=== PATIENT | male | born 1965 | race Caucasian/White ===

== ENCOUNTER 2021-06-26 16:27 | Emergency (ER) | payer BC ==
[2021-06-26 19:55] LABS: Bilirubin Negative (Negative); Blood, Urine Negative (Negative); Clarity Clear (Clear); Glucose, Urine (Dipstick) Normal (Negative); Ketone, Urine Negative (Negative); Leukocyte Negative Leu/uL (Negative); Nitrite Negative (Negative); Protein, Urine (Dipstick) Negative (Neg-Trace); Specific Gravity, Urine 1.007 (1.002-1.036); Urobilinogen Normal mg/dL (Less than 2)
== END 2021-06-26 21:06 | disposition home or self-care (01) ==
LOC: ERS 16:27
DX: R33.9 Retention of urine, unspecified (principal); F17.210 Nicotine dependence, cigarettes, uncomplicated
CPT/HCPCS: 81003; 99283

== ENCOUNTER 2021-10-16 13:37 | Emergency (ER) | payer OTHER, SELFPAY ==
[2021-10-16 14:36] LABS: #Basophils 0.1 thou/uL (0.0-0.2); #Eosinphils 0.2 thou/uL (0.0-0.7); #Lymphocytes 2.4 thou/uL (1.20-3.40); #Monocytes 0.7 thou/uL (0.11-0.59); #Neutrophils 4.1 thou/uL (1.40-6.50); %Basophils 0.9 % (0.0-1.0); %Eosinophils 2.9 % (0.0-10.0); %Lymphocytes 32.2 % (21.0-51.0); %Monocytes 9.2 % (0.0-10.0); %Neutrophils 54.8 % (42.0-75.0); Hemoglobin 11.6 g/dL (14.0-18.0); Mean Corpuscular HGB CONC 34.3 g/dL (32.0-36.0); Mean Corpuscular Volume 90.2 fL (78.0-98.0); Platelet Count 202 thou/uL (130-400); RBC Distribution Width 11.6 % (11.5-14.5); Red Blood Cell (RBC) Count 3.75 mill/uL (4.70-6.10); White Blood Cell (WBC) Count 7.5 thou/uL (4.8-10.8)
[2021-10-16 14:41] LABS: Mean Platelet Volume 8.9 fL (7.4-10.4)
[2021-10-16 15:00] LABS: ALT (SGPT) 11 U/L (8-55); AST (SGOT) 17 U/L (5-34); BUN (Urea Nitrogen) 10 mg/dL (8.4-25.7)
[2021-10-16 15:13] LABS: Albumin 4.2 g/dL (3.5-5.0); Alkaline Phosphatase 71 U/L (40-110); Anion Gap 13 mmol/L (10-20); Bilirubin, Total 0.2 mg/dL (0.2-1.2); Calc. Creatinine Clearance 0 mL/min (70-130); Calcium 9.5 mg/dL (7.8-10.44); Carbon Dioxide 25 mmol/L (22-29); Chloride 102 mmol/L (98-107); Globulin 2.7 g/dL (2.4-3.5); Glucose 135 mg/dL (70-105); Potassium 3.9 mmol/L (3.5-5.1); Protein, Total 6.9 g/dL (6.0-8.3); Sodium 136 mmol/L (136-145)
[2021-10-16 20:26] LABS: Bilirubin Negative (Negative); Blood, Urine Negative (Negative); Clarity Clear (Clear); Glucose, Urine (Dipstick) Normal (Negative); Ketone, Urine Negative (Negative); Leukocyte Negative Leu/uL (Negative); Nitrite Negative (Negative); Protein, Urine (Dipstick) Negative (Neg-Trace); Specific Gravity, Urine 1.006 (1.002-1.036); Urobilinogen Normal mg/dL (Less than 2); pH, Urine 6.5 (5.0-9.0)
== END 2021-10-16 21:32 | disposition home or self-care (01) ==
LOC: ERS 13:37
DX: R10.12 Left upper quadrant pain (principal); R10.11 Right upper quadrant pain; G89.29 Other chronic pain; F17.210 Nicotine dependence, cigarettes, uncomplicated
CPT/HCPCS: 36415; 74176; 80053; 81003; 83690; 85025

== ENCOUNTER 2021-10-24 16:13 | Outpatient (CLI) | payer OTHER ==
[2021-10-24 17:06] LABS: Bilirubin Neg (Negative); Blood, Urine Negative (Negative); Clarity Clear (Clear); Glucose, Urine (Dipstick) Normal (Negative); Ketone, Urine Negative (Negative); Leukocyte Negative (Negative); Nitrite Negative (Negative); Protein, Urine (Dipstick) Negative (Neg-Trace); Urobilinogen Normal mg/dL (Less than 2)
[2021-10-24 17:20] LABS: Specific Gravity, Urine 1.015 (1.002-1.036)
[2021-10-24 17:24] LABS: RBC/HPF None Seen HPF (0-3)
[2021-10-25 17:56] LABS: SARS-CoV-2 PCR by NAA Not Detected (NotDetected)
== END 2021-10-24 16:14 | disposition home or self-care (01) ==
LOC: LABBT 16:13
PROVIDERS: ATTEND Urology
DX: Z01.818 Encounter for other preprocedural examination (principal); N20.0 Calculus of kidney; Z20.822 Contact with and (suspected) exposure to COVID-19
CPT/HCPCS: 81001; 87086; 93005; 93010; U0003; U0005

== ENCOUNTER 2021-10-28 07:15 | Day surgery (SDC) | payer BC ==
[2021-10-27 12:14] VITALS: BMI 22.4
[2021-10-28] MEDS ORDERED: Midazolam HCl 2 mg/2 ml Vial ONE (09:03)
[2021-10-28] MEDS ORDERED: Fentanyl 100 MCG/2 ML VIAL ONE ×2 (09:03)
[2021-10-28] MEDS ORDERED: Iothalamate Meglumine 60% 50 ML VIAL FS ONE (09:05)
[2021-10-28] MEDS ORDERED: Famotidine/PF 20 mg/2ml Vial ONE (09:08)
[2021-10-28] MEDS ORDERED: Levofloxacin 500 mg/D5W 100 ml Premix Bag ONE (09:08)
[2021-10-28] MEDS ORDERED: Ondansetron PF 4 MG/2 ML Vial ONE (09:17)
[2021-10-28] MEDS ORDERED: Dexamethasone 20 MG/5 ML VIAL ONE (09:17)
[2021-10-28] MEDS ORDERED: Lidocaine 1% PF 5 ML VIAL ONE (09:17)
[2021-10-28] MEDS ORDERED: PROPOFOL 200 MG/20 ML VIAL ONE (09:17)
[2021-10-28] MEDS ORDERED: ePHEDrine 50 MG/ML VIAL ONE (09:17)
[2021-10-28] MEDS ORDERED: Oxybutynin 5 MG TAB ONE (11:28)
[2021-10-28] MEDS ORDERED: HYDROcodone/Acetaminophen 5/325 mg Tablet ONE (12:20)
== END 2021-10-28 13:20 | disposition home or self-care (01) ==
LOC: SDC 07:15
PROVIDERS: ATTEND Urology
PROC: 0TC48ZZ Extirpation of Matter from Left Kidney Pelvis, Via Natural or Artificial Opening Endoscopic (ICD-10-PCS; principal; 2021-10-28)
PROC: 0TC38ZZ Extirpation of Matter from Right Kidney Pelvis, Via Natural or Artificial Opening Endoscopic (ICD-10-PCS; principal; 2021-10-28)
PROC: 0T788DZ Dilation of Bilateral Ureters with Intraluminal Device, Via Natural or Artificial Opening Endoscopic (ICD-10-PCS; principal; 2021-10-28)
DX: N20.0 Calculus of kidney (principal); M19.90 Unspecified osteoarthritis, unspecified site; Z79.899 Other long term (current) drug therapy; Z88.0 Allergy status to penicillin; Z88.1 Allergy status to other antibiotic agents; Z88.2 Allergy status to sulfonamides; Z91.040 Latex allergy status; Z91.048 Other nonmedicinal substance allergy status; Z98.1 Arthrodesis status
CPT/HCPCS: 74420; 82365; 88300; C2617; J1100; J1956; J2250; J2405; J2704; J3010; J3490; Q9961-U8; S0028